=== PATIENT | male | born 1970 | race Caucasian/White ===

== ENCOUNTER 2018-02-20 19:25 | Emergency (ER) | payer BC ==
[~2018-02-20] VITALS: Ht 170.1 cm; Wt 81.6 kg
[~2018-02-20 19:25] MED LIST: BENADRYL25 MG PO; KEFLEX500 MG PO; NKHM; PREDNICOT20 MG PO
[2018-02-20] MEDS ORDERED: PREDNISONE20 M1 PO (20:42)
[2018-02-20] MEDS ORDERED: LEVOFLOXACIN500 MG PO (20:42)
== END 2018-02-20 20:45 | disposition home or self-care (01) ==
LOC: ED 19:25
DX: J20.9 Acute bronchitis, unspecified (principal); F17.200 Nicotine dependence, unspecified, uncomplicated; Z88.0 Allergy status to penicillin

== ENCOUNTER 2019-01-28 15:03 | Inpatient (IN) | payer BC ==
[~2019-01-28] VITALS: Ht 175.3 cm; Wt 110.9 kg
--- NOTE | ~2019-01-28 | EKG ---
[place], [place] ELECTROCARDIOGRAM REPORT NAME: MARY FUCHS UNIT #: [id number] ROOM: 520 DOCTOR: GILDA DRAFT REPORT BIRTHDATE: [birth year] [facility] Test Date: 2019-01-28 Test Time: 15:03:35 Pat Name: MARY FUCHS Department: Room: 520 Gender: M Board Certified Family Physician: Nell Crenshaw : 1970 Requested By: BETO ANDERSON Order Number: [id number] Reading MD: Maliha Tan MD Measurements Intervals [place] Rate: 74 P: -2 CT: 151 QRS: -54 QRSD: 148 T: -12 QT: 393 QTc: 436 Interpretive Statements Sinus rhythm RBBB and LAFB Baseline wander in lead(s) V2 No previous ECG available for comparison Electronically Signed On 01-28-2019 17:04:16 PST by Maliha Tan MD CM:EKGRPT:ELECTROCARDIOGRAM REPORT [id number] 1704 BETO VO DRAFT REPORT BETO ANDERSON MD
--- NOTE | ~2019-01-28 | EKG ---
[place], [place] ELECTROCARDIOGRAM REPORT NAME: MARY FUCHS UNIT #: [id number] ROOM: 520 DOCTOR: GILDA DRAFT REPORT BIRTHDATE: [birth year] [facility] Test Date: 2019-01-28 Test Time: 17:40:43 Pat Name: MARY FUCHS Department: Room: 520 Gender: M Battery Service Technician: Nell Crenshaw : 1970 Requested By: BETO ANDERSON Order Number: [id number] Reading MD: Maliha Tan MD Measurements Intervals [place] Rate: 72 P: 19 TN: 153 QRS: -60 QRSD: 152 T: 2 QT: 415 QTc: 455 Interpretive Statements Sinus rhythm RBBB and LAFB Baseline wander in lead(s) V1,V5 No previous ECG available for comparison Electronically Signed On 01-28-2019 17:04:41 PST by Maliha Tan MD CM:EKGRPT:ELECTROCARDIOGRAM REPORT [id number] 1704 BETO VO DRAFT REPORT BETO ANDERSON MD
--- NOTE | ~2019-01-28 | EKG ---
[place], [place] ELECTROCARDIOGRAM REPORT NAME: MARY FUCHS UNIT #: [id number] ROOM: 520 DOCTOR: GILDA DRAFT REPORT BIRTHDATE: [birth year] [facility] Test Date: 2019-01-28 Test Time: 20:53:11 Pat Name: MARY FUCHS Department: Room: 520 Gender: M Life Scientist: Nell Crenshaw : 1970 Requested By: BETO ANDERSON Order Number: [id number] Reading MD: Maliha Tan MD Measurements Intervals [place] Rate: 65 P: 35 [place]: 154 QRS: -45 QRSD: 155 T: 0 QT: 401 QTc: 417 Interpretive Statements Sinus rhythm RBBB and LAFB Baseline wander in lead(s) V1,V2 Compared to ECG 01/28/2019 17:40:43 No significant changes Electronically Signed On 01-29-2019 13:58:38 PST by Maliha Tan MD CM:EKGRPT:ELECTROCARDIOGRAM REPORT [id number] BETO VO DRAFT REPORT BETO ANDERSON MD
[~2019-01-28 15:03] MED LIST changes: +LEVOFLOXACIN500 MG PO; +PREDNISONE20 M1 PO
[2019-01-28 15:05] VITALS: BP 130/59
[2019-01-28 15:20] LABS: BASO # 0.1 10*3/uL (0.0-0.1); BASO % 0.6 % (0.0-1.0); EOS # 0.2 10*3/uL (0.0-0.4); EOS % 1.6 % (1.0-4.0); HEMATOCRIT 47.1 % (42.0-52.0); HEMOGLOBIN 16.3 g/dl (14.0-18.0); LYMPH # 4.9 10*3/uL (1.3-4.4); LYMPH % 53.2 % (27.0-41.0); MEAN CELL VOLUME 92.9 fl (80.0-94.0); MEAN CORPUSCULAR HGB 32.1 pg (27.0-31.0); MEAN CORPUSCULAR HGB CONC 34.6 g/dl (33.0-37.0); MEAN PLATELET VOLUME 10.1 fl (9.6-12.3); MONO # 0.7 10*3/uL (0.1-1.0); MONO % 7.7 % (3.0-9.0); NEUT # 3.4 10*3/uL (2.3-7.9); NEUT % 36.7 % (47.0-73.0); PLATELET COUNT AUTOMATED 244 10*3/uL (130-400); RED BLOOD COUNT 5.07 10*6/uL (4.50-5.90); RED CELL DISTRI WIDTH 13.2 % (0-14.5); WHITE BLOOD COUNT 9.3 10*3/uL (4.8-10.8)
[2019-01-28 15:35] LABS: ACT PARTIAL THROMBO TIME 24.7 SECONDS (20.8-31.5); INTERNATIONAL NORM RATIO 0.9 (2.0-3.5)
[2019-01-28 15:45] LABS: ALBUMIN 4.3 gm/dl (3.1-4.5); ALKALINE PHOSPHATASE 108 U/L (45-117); BUN 12 mg/dl (7-24); CHLORIDE 104 mmol/L (98-107); CREATININE 1.09 mg/dL (0.70-1.30); POTASSIUM 4.2 mmol/L (3.5-5.1); SGOT/AST 23 IU/L (3-35); SGPT/ALT 37 U/L (12-78); SODIUM 139 mmol/L (136-145); TOTAL PROTEIN 8.5 gm/dL (6.4-8.2)
[2019-01-28 15:52] LABS: TROPONIN I < 0.015 ng/ml (<0.045)
[2019-01-28 16:05] VITALS: BP 110/78
[2019-01-28 17:05] VITALS: BP 112/68
[2019-01-28 17:45] VITALS: BP 128/67
--- NOTE | 2019-01-28 17:45 | NUR ---
A 48, admitted to 5E, under the services of ILEANA De Santiago DO with a diagnosis of CHEST PAIN R/O ACUTE IL. Chief complaint is CHEST PAIN. Patient arrived via ambulatory from ER. Monitor applied. Initial assessment completed. Vital signs taken and recorded. ILEANA DE SANTIAGO DO notified of admission to the unit. Orders received. See assessment for past medical history, medications and allergies. Patient and/or family oriented to unit. [facility] 5E visitation policy reviewed. Clothing/patient valuable form completed. SKIN INTACT WITH NO WOUNDS. DECLINES FLU AND PNEUMONIA VACCINATIONS. OVIDIO ROBLES
[2019-01-28] MEDS ORDERED: NEXIUM 24HR20 M2 PO (18:03)
--- NOTE | 2019-01-28 19:01 | NUR ---
SPOKE TO DR IZQUIERDO REGARDING NEW PT CONSULT. ORDERS RECEIVED.
[2019-01-28 20:00] VITALS: BP 112/63
--- NOTE | 2019-01-28 21:15 | NUR ---
PT AWAKE. SITTING IN CHAIR AT THE BEDSIDE. EDUCATED PT REGARDING SCHEDULED STRESS TEST FOR MORNING. PT VOICED UNDERSTANDING. CALL BROWNING IN REACH
[2019-01-29] VITALS: BP 109/62
[2019-01-29 06:59] LABS: BASO # 0.1 10*3/uL (0.0-0.1); BASO % 0.8 % (0.0-1.0); EOS # 0.2 10*3/uL (0.0-0.4); EOS % 2.4 % (1.0-4.0); HEMATOCRIT 46.3 % (42.0-52.0); HEMOGLOBIN 15.2 g/dl (14.0-18.0); LYMPH # 3.3 10*3/uL (1.3-4.4); LYMPH % 46.5 % (27.0-41.0); MEAN CELL VOLUME 94.7 fl (80.0-94.0); MEAN CORPUSCULAR HGB 31.1 pg (27.0-31.0); MEAN CORPUSCULAR HGB CONC 32.8 g/dl (33.0-37.0); MONO # 0.7 10*3/uL (0.1-1.0); MONO % 9.9 % (3.0-9.0); NEUT # 2.9 10*3/uL (2.3-7.9); PLATELET COUNT AUTOMATED 218 10*3/uL (130-400); RED BLOOD COUNT 4.89 10*6/uL (4.50-5.90); RED CELL DISTRI WIDTH 13.2 % (0-14.5); WHITE BLOOD COUNT 7.2 10*3/uL (4.8-10.8)
[2019-01-29 07:09] LABS: BUN 13 mg/dl (7-24); CHLORIDE 104 mmol/L (98-107); CHOLESTEROL 190 mg/dL (<200); CREATININE 1.08 mg/dL (0.70-1.30); FREE T4 0.75 ng/dl (0.76-1.46); HDL CHOLESTEROL 22 mg/dl (40-60); LDL CHOLESTEROL 115 mg/dL (9-159); PHOSPHOROUS 3.9 mg/dL (2.5-4.9); SODIUM 138 mmol/L (136-145); TRIGLYCERIDES 263 mg/dl (<150); VLDL CHOLESTEROL 53 mg/dL (6-40)
[2019-01-29 07:42] LABS: VITAMIN D, 25-HYDROXY 13.1 ng/mL (30-100)
--- NOTE | 2019-01-29 10:15 | NUR ---
PT TRANSFERED TO CARDIAC REHAB DEPT AT THIS TIME FOR STRESS TEST.
--- NOTE | 2019-01-29 10:30 | NUR ---
INFORMED CONSENT OBTAINED FOR AN [facility] CARDIOLITE STRESS TEST WITH DR. BENAVIDEZ. RESTING EKG NSR/RBBB WITH A SUPINE HT RT OF 69 AND A BP OF 106/58 AND A HT RT OF 81 AND A BP OF 98/62 IN A STANDING POSITION. PT COMPLETED 9:00 MINUTES OF A GERALDINE PROTOCOL WITH COMPLETION OF STAGE III AT 3.4 MPH AND A 14% GRADE. REACHED A PEAK HT RT 167 WHICH IS 96% OF PREDICTED MAX WITH A PEAK BP OF 170/46. TEST TERMINATED DUE TO FATIGUE. DENIES CHEST PAIN. HAS AN AVERAGE EXERCISE TOLERANCE. LAST RECOVERY HT RT OF 96 WITH A BP OF 126/52. TAKEN TO NUCLEAR IMAGING IN STABLE CONDITION.
--- NOTE | 2019-01-29 11:51 | NUR ---
Front Office Clerk in to talk to patient. Patient states lives at HOME with . There are SEVERAL steps in the home. Physician: TARA Pharmacy: [facility] health services: NONE Patient's level of ADLs: INDEPENDENT Patient has working utilities: YES DME: NONE Follow-up physician's appointment after d/c: WILL BE MADE BY HOSPITALIST NURSE DIRECTOR ON DISCHARGE Does patient want to access PORTAL?: NO Discharge plan PT STATES HE LIVES AT HOME WITH HIS AND IS IS INDEPENDENT IN CARE. DENIES ANY NEEDS AT DISCHARGE. WILL CONTINUE TO FOLLOW. STATES HIS WILL TAKE HIM HOME ON DISCHARGE.. WILLIAM QUIROS
[2019-01-29 12:00] VITALS: BP 138/86
[2019-01-29 16:00] VITALS: BP 120/60
--- NOTE | 2019-01-29 17:17 | NUR ---
I NOTIFIED DR HAQUE THAT DR Vidal BENAVIDEZ WANTED THEM TO KNOW STRESS TEST WAS NORMAL AND OK TO DISCHARGE FROM CARDIOLOGY STAND POINT.
[2019-01-29] MEDS ORDERED: ATORVASTATIN CA20 M1 PO (17:32)
[2019-01-29] MEDS ORDERED: VITAMIN D5000 UNI1 PO (17:32)
--- NOTE | 2019-01-29 17:58 | NUR ---
Discharge instructions reviewed with patient/family. Patient receptive and verbalizes understanding. Follow-up care arranged. Written instructions given to patient/family. MISHA MANRIQUE
--- NOTE | 2019-01-29 17:58 | NUR ---
PT DISCHARGED AT THIS TIME WITH SPOUSE TO HOME.
== END 2019-01-29 17:58 | disposition home or self-care (01) | DRG 206 ==
LOC: ED 15:03 → 5E 16:51 → EDHOLD 16:51 → 5E 17:26
PROVIDERS: Emergency Medicine; Internal Medicine; ADMIT Internal Medicine
PROC: 4A02XM4 Measurement of Cardiac Total Activity, External Approach (ICD-10-PCS; principal; 2019-01-29)
DX: M94.0 Chondrocostal junction syndrome [Tietze] (principal); F17.210 Nicotine dependence, cigarettes, uncomplicated; K21.9 Gastro-esophageal reflux disease without esophagitis; E78.2 Mixed hyperlipidemia; R07.89 Other chest pain; R94.31 Abnormal electrocardiogram [ECG] [EKG]; D72.820 Lymphocytosis (symptomatic); Z71.6 Tobacco abuse counseling; Z68.36 Body mass index [BMI] 36.0-36.9, adult; Z79.899 Other long term (current) drug therapy; Z88.0 Allergy status to penicillin

== ENCOUNTER 2019-05-30 13:10 | Emergency (ER) | payer BC ==
[~2019-05-30] VITALS: Wt 111.1 kg
[~2019-05-30 13:10] MED LIST changes: +ATORVASTATIN CA20 M1 PO; +NEXIUM 24HR20 M2 PO; +VITAMIN D5000 UNI1 PO
[2019-05-30 13:55] LABS: HEMATOCRIT 39.8 % (42.0-52.0); HEMOGLOBIN 13.5 g/dl (14.0-18.0); MEAN CELL VOLUME 93.2 fl (80.0-94.0); MEAN CORPUSCULAR HGB 31.6 pg (27.0-31.0); MEAN CORPUSCULAR HGB CONC 33.9 g/dl (33.0-37.0); MEAN PLATELET VOLUME 9.8 fl (9.6-12.3); PLATELET COUNT AUTOMATED 217 10*3/uL (130-400); RED BLOOD COUNT 4.27 10*6/uL (4.50-5.90); RED CELL DISTRI WIDTH 13.1 % (0-14.5); WHITE BLOOD COUNT 7.8 10*3/uL (4.8-10.8)
[2019-05-30 14:08] LABS: ALBUMIN 3.4 gm/dl (3.1-4.5); ALKALINE PHOSPHATASE 109 U/L (45-117); BUN 14 mg/dl (7-24); CHLORIDE 111 mmol/L (98-107); CREATININE 1.04 mg/dL (0.70-1.30); POTASSIUM 3.4 mmol/L (3.5-5.1); SGOT/AST 12 IU/L (3-35); SGPT/ALT 34 U/L (12-78); SODIUM 142 mmol/L (136-145); TOTAL PROTEIN 6.8 gm/dL (6.4-8.2)
[2019-05-30 14:13] LABS: BASOPHILS 1 % (0-1); PLASMA CELL 3 % (0-0); PLATELET SUFFICIENCY NORMAL (NORMAL); TOTAL CELLS COUNTED 100 #CELLS
== END 2019-05-30 15:11 | disposition home or self-care (01) ==
LOC: ED 13:10
PROVIDERS: Emergency Medicine
DX: R19.7 Diarrhea, unspecified (principal); K92.1 Melena; R10.9 Unspecified abdominal pain; E78.5 Hyperlipidemia, unspecified; K21.9 Gastro-esophageal reflux disease without esophagitis; F17.210 Nicotine dependence, cigarettes, uncomplicated; Z88.0 Allergy status to penicillin; Z79.899 Other long term (current) drug therapy

== ENCOUNTER → 2019-09-25 | Outpatient (CLI) | payer BC ==
--- NOTE | ~2019-09-25 | HM ---
[place], [place] HOLTER MONITOR REPORT NAME: MARY FUCHS UNIT #: [id number] ROOM: DOCTOR: MARIVEL BEGUM MD BIRTHDATE: [birth year] DOS: A 24-hour Holter monitor. The patient remained in sinus rhythm throughout the entire period. Minimum heart rate 59, maximum heart rate is 130, average is 84 beats per minute. As mentioned, the patient remained in sinus rhythm throughout the entire period. One episode of sinus tachycardia with right bundle branch pattern. No other significant dysrhythmia is present. No ventricular or supraventricular dysrhythmia. Occasional isolated PACs. No bradycardia is present. FINAL IMPRESSION: Normal Holter monitor with one episode of sinus tachycardia. No significant ventricular or supraventricular dysrhythmia. No significant pauses. MARIVEL BEGUM MD CM:HOLTER:HOLTER MONITOR REPORT [id number] MARIVEL BEGUM MD
== END | disposition home or self-care (01) ==
LOC: CARD 14:45
DX: R00.2 Palpitations (principal)

== ENCOUNTER → 2020-04-30 | Outpatient (CLI) | payer BC | END | disposition home or self-care (01) | LOC: RAD 15:40 | DX: S13.4XXA Sprain of ligaments of cervical spine, initial encounter (principal); X58.XXXA Exposure to other specified factors, initial encounter; Y93.89 Activity, other specified; Y92.89 Other specified places as the place of occurrence of the external cause; Y99.8 Other external cause status ==

== ENCOUNTER → 2020-05-11 | Outpatient (CLI) | payer BC | END | disposition home or self-care (01) | LOC: US 08:51 | DX: K76.0 Fatty (change of) liver, not elsewhere classified (principal); N28.1 Cyst of kidney, acquired; R19.5 Other fecal abnormalities ==

== ENCOUNTER 2025-11-22 12:55 | Emergency (ER) | payer BC ==
[~2025-11-22] VITALS: Ht 175.2 cm; Wt 113.4 kg
== END 2025-11-22 15:16 | disposition home or self-care (01) ==
LOC: ED 12:55
DX: B34.9 Viral infection, unspecified (principal); R19.7 Diarrhea, unspecified